=== PATIENT | male | born 1980 | race Caucasian/White ===

== ENCOUNTER 2018-03-23 10:23 | Emergency (ER) | payer MEDICAID ==
[2018-03-23 13:50] LABS: URINE BLOOD (Dip) POC Negative (NEGATIVE); URINE GLUCOSE (Dip) POC Negative (NEGATIVE); URINE KETONES (Dip) POC Negative (NEGATIVE); URINE LEUKOCYTE EST (Dip) POC Negative (NEGATIVE); URINE NITRITE (Dip) POC Negative (NEGATIVE); URINE TOTAL PROTEIN POC Negative (NEGATIVE)
== END 2018-03-23 14:31 | disposition home or self-care (01) ==
LOC: E/R 10:23
DX: R07.9 Chest pain, unspecified (principal)
CPT/HCPCS: 81003; 82962; 93005; 99283-25